=== PATIENT | male | born 1945 ===

== ENCOUNTER 2019-03-27 10:47 | Inpatient (IN) | payer OTHER ==
[~2019-03-27] VITALS: Ht 165.1 cm; Wt 76.2 kg
[2019-04-03] MEDS ORDERED: GLUCOPHAGE XR750 MG PO (13:40)
[2019-04-03] MEDS ORDERED: GLIMEPIRIDE4 MG PO (13:40)
[2019-04-03] MEDS ORDERED: LIPITOR20 MG PO (13:40)
[2019-04-03] MEDS ORDERED: COZAAR50 MG PO (13:40)
== END 2019-04-14 09:54 | disposition home or self-care (01) | DRG 330 ==
LOC: ADM 04-03 08:00 → EDSTATUS 04-08 08:00 → AMB-ENDOS 04-08 08:00 → SURH 04-10 07:02 → O/R 04-10 07:02 → SURH 04-10 08:00
PROVIDERS: ADMIT Colon & Rectal Surgery
PROC: 07TB4ZZ Resection of Mesenteric Lymphatic, Percutaneous Endoscopic Approach (ICD-10-PCS; 2019-04-10)
PROC: 0DJD8ZZ Inspection of Lower Intestinal Tract, Via Natural or Artificial Opening Endoscopic (ICD-10-PCS; 2019-04-10)
PROC: 4A1BXSH Monitoring of Gastrointestinal Vascular Perfusion using Indocyanine Green Dye, External Approach (ICD-10-PCS; 2019-04-10)
PROC: 0DTN4ZZ Resection of Sigmoid Colon, Percutaneous Endoscopic Approach (ICD-10-PCS; principal; 2019-04-10 14:30)
DX: C18.7 Malignant neoplasm of sigmoid colon (principal); C77.2 Secondary and unspecified malignant neoplasm of intra-abdominal lymph nodes; I11.9 Hypertensive heart disease without heart failure; E11.9 Type 2 diabetes mellitus without complications

== ENCOUNTER 2019-04-08 05:50 | Day surgery (SDC) | payer OTHER ==
[~2019-04-08 05:50] MED LIST: COZAAR50 MG PO; GLIMEPIRIDE4 MG PO; GLUCOPHAGE XR750 MG PO; LIPITOR20 MG PO
== END 2019-04-08 11:10 | disposition home or self-care (01) ==
LOC: AMB-ENDOS 05:50
DX: D12.4 Benign neoplasm of descending colon (principal)